=== PATIENT | female | born 1930 | race Caucasian/White ===

== ENCOUNTER 2018-02-09 20:35 | Emergency (ER) | payer OTHER, MEDICARE ==
[~2018-02-09] VITALS: Ht 160 cm; Wt 67.1 kg
[~2018-02-09 20:35] MED LIST: CLEOCIN HCL300 MG PO
[2018-02-09 20:43] VITALS: BP 129/52
--- NOTE | 2018-02-09 20:45 | ED UPPER/LOWER EXTREMITY COMPL ---
History of Present Illness General Chief Complaint: Lower Extremity Problems Stated Complaint: "LT HIP PAIN" Source: patient Exam Limitations: no limitations Vital Signs & Intake/Output Vital Signs & Intake/Output Vital Signs Date Time Temp Pulse Resp B/P B/P Pulse O2 O2 Flow FiO2 Mean Ox Delivery Rate 02/09 2043 97.6 78 18 129/52 94 Room Air Room Air ED Intake and Output 02/10 0000 02/09 1200 Intake Total Output Total Balance Patient 148 lb Weight Weight Reported by Patient Measurement Method Allergies Coded Allergies: erythromycin base (UNKNOWN 09/23/17) Reconcile Medications CLINDAMYCIN HCL (Cleocin HCl) 300 MG CAP 1 CAP PO TID . Triage Nurses Notes Reviewed? yes Onset: Gradual Duration: day(s): Timing: recent history Severity: mild Pain/Injury Location: Left: Hip. Method of Injury: unknown Modifying Factors: Improves With: movement. Worsens With: rest. Associated Symptoms: stiffness HPI: 87 yo woman in prior good health presents with left hip pain for the past 2 days, making it difficult to walk. She does not recall trauma or recent falls. The pain is better with movement and hurts when she is sitting. She is otherwise well. Past History Travel History Traveled to [place] past 21 day No Medical History Any Pertinent Medical History? 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 No Review of Systems Review of Systems Constitutional: Reports: no symptoms. EENTM: Reports: no symptoms. Respiratory: Reports: no symptoms. Cardiovascular: Reports: no symptoms. Gastrointestinal/Abdominal: Reports: no symptoms. Genitourinary: Reports: no symptoms. Musculoskeletal: Reports: no symptoms. Skin: Reports: no symptoms. Neurological/Psychological: Reports: no symptoms. Hematologic/Endocrine: Reports: no symptoms. Immunological: Reports: no symptoms. All Other Systems: Reviewed and Negative Physical Exam Physical Exam General Appearance: well developed/nourished, mild distress Head: atraumatic Ears, Nose, Throat: normal ENT inspection Neck: normal inspection Leg Left: mild tenderness in left hip musculature. no displacement. ROM limited by discomfort Progress Differential Diagnosis: arthritis vs other. Plan of Care: Orders Procedure Date/time Status XRY-AP PELVIS 02/09 2045 Active XRY-HIP 4 VIEWS UNI, LEFT 02/09 2045 Active Diagnostic Imaging: Viewed by Me: Radiology Read. Discussed w/RAD: Radiology Read. Radiology Impression: PATIENT: GOVIND MONTENEGRO PRESENT AGE: 87 PATIENT ACCOUNT NO: [id number] : 32 LOCATION: [facility] ORDERING PHYSICIAN: Bharath Weiner MD SERVICE DATE: 02/09/18-2044 EXAM TYPE: RAD - XRY-AP PELVIS; XRY-HIP 1 VIEW, LEFT EXAMINATION: XR PELVIS LEFT HIP RADIOGRAPHS CLINICAL INFORMATION: Pain. COMPARISON: Left hip radiographs dated 05/11/2010. TECHNIQUE: AP view of the pelvis. FINDINGS: The left hip prosthesis is unchanged in position. There is no evidence of hardware failure. No fracture. There is narrowing of the symphysis pubis. The osseous structures are demineralized. The right hip prosthesis appears similar in position when compared with 02/02/2018 CT examination. There are extensive degenerative changes of the sacroiliac joints and visualized lumbar spine. There is no displaced pelvic fracture. There are vascular calcifications. IMPRESSION: No displaced pelvic fracture. Osteopenia. Vascular calcifications. 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 The left hip prosthesis and visualized right hip prosthesis appear intact. DICTATED BY: Jesse Major MD DATE/TIME DICTATED:02/09/182120 GREEN LUMBER GRADER:NATTY DATE/ TIME TRANSCRIBED:02/09/182120 CONFIDENTIAL, DO NOT COPY WITHOUT APPROPRIATE AUTHORIZATION. <Electronically signed in Other Vendor System> SIGNED BY: Jesse Major MD 02/09/182130 Departure Departure Disposition: HOME OR SELF CARE Condition: Stable Clinical Impression Primary Impression: Hip pain Secondary Impressions: Arthritis Referrals: Wolfgang VAUGHN,Daniel Perez (PCP/Family) Departure Forms: Customer Survey General Discharge Information Comments benign xray... upon repeat questioning, pt states, "I feel fine... it was hurting yesterday, but it is better today." Encouraged close follow up.
--- NOTE | 2018-02-09 21:31 | RADIOLOGY REPORT ---
EXAMINATION: XR PELVIS LEFT HIP RADIOGRAPHS CLINICAL INFORMATION: Pain. COMPARISON: Left hip radiographs dated 05/11/2010. TECHNIQUE: AP view of the pelvis. FINDINGS: The left hip prosthesis is unchanged in position. There is no evidence of hardware failure. No fracture. There is narrowing of the symphysis pubis. The osseous structures are demineralized. The right hip prosthesis appears similar in position when compared with 02/02/2018 CT examination. There are extensive degenerative changes of the sacroiliac joints and visualized lumbar spine. There is no displaced pelvic fracture. There are vascular calcifications. IMPRESSION: No displaced pelvic fracture. Osteopenia. Vascular calcifications. 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 The left hip prosthesis and visualized right hip prosthesis appear intact.
[2018-02-11] MEDS ORDERED: CIPRO500 M1 PO (19:46)
[2018-02-14] MEDS ORDERED: MACROBID 100 M100 MG PO (17:56)
== END 2018-02-09 21:56 ==
LOC: ERH 20:35
DX: M16.12 Unilateral primary osteoarthritis, left hip (principal)
CPT/HCPCS: 72170; 73501

== ENCOUNTER 2018-02-17 17:06 | Inpatient (IN) | payer OTHER, MEDICARE ==
[~2018-02-17] VITALS: Ht 160 cm; Wt 64.0 kg
[~2018-02-17 17:06] MED LIST changes: +CIPRO500 M1 PO; +MACROBID 100 M100 MG PO
--- NOTE | 2018-02-17 18:06 | ED GENERAL ADULT ---
History of Present Illness General Chief Complaint: Lower Extremity Problems Stated Complaint: LEFT HIP PAIN, SWELLING TO LEFT LEG Source: patient, family Exam Limitations: dementia Vital Signs & Intake/Output Vital Signs & Intake/Output Vital Signs Date Time Temp Pulse Resp B/P B/P Pulse O2 O2 Flow FiO2 Mean Ox Delivery Rate 02/17 2245 97.4 62 16 134/66 99 Room Air 02/17 2135 57 18 136/64 99 Room Air 02/17 1939 97.5 61 18 131/60 98 02/17 1907 Room Air 02/17 1723 98.4 73 18 141/73 95 Room Air Allergies Coded Allergies: erythromycin base (UNKNOWN 09/23/17) Triage Note: RETURNS FOR CONTINUED COMPLAINTS OF LEG AND HIP PAIN. SEEN HERE 02/11 AND WEEK BEFORE AND SEEN BY CASE MANAGEMENT WHO SET UP HHS. HX DEMENTIA AND BLADDER CA. PT IS UNSURE OF WHY SHE IS HERE Triage Nurses Notes Reviewed? yes Onset: Gradual Duration: week(s): Timing: constant HPI: 87-year-old female with a history of dementia, hypothyroid, and bladder cancer ( not receiving any tx) presenting with left thigh pain times several weeks. Has been using tramadol without relief. Patient has been seen multiple times in the emergency Department for the same. 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 Was discharged home with outpatient follow-up. Today developed swelling and worsening pain to the left lower extremity. Denies numbness or paresthesias. (Elizabeth STEPHENS,Fátima) Reconcile Medications Levothyroxine Sodium 100 MCG TABLET 1 TAB PO DAILY THYROID HEALTH (Reported) Memantine HCl/Donepezil HCl (Namzaric 7 MG-10 MG Capsule) 7 MG-10 MG CAP.SPR.24 7-10 MG PO DAILY MEMORY (Reported) Nitrofurantoin Monohyd/M-Cryst (Macrobid 100 MG Capsule) 100 MG CAPSULE 1 CAP PO BID UTI with food Simvastatin (Simvastatin*) 40 MG TABLET 1 TAB PO DAILY HIGH CHOLESTROL ( Reported) Tramadol HCl 50 MG TABLET 1 TAB PO Q6P PRN PAIN SCALE 4-6 (MODERATE) ( Reported) (Husam VAUGHN,Bharath Fish) Past History Travel History Traveled to [place] past 21 day No Medical History Any Pertinent Medical History? 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 No (Fátima Puga) Review of Systems Review of Systems Constitutional: Reports: no symptoms. EENTM: Reports: no symptoms. Respiratory: Reports: no symptoms. Cardiovascular: Reports: edema. Denies: chest pain, orthopena, palpitations, syncope. GI: Reports: no symptoms. Genitourinary: Reports: no symptoms. Musculoskeletal: Reports: see HPI. Skin: Reports: no symptoms. Neurological/Psychological: Reports: no symptoms. Hematologic/Endocrine: Reports: no symptoms. Immunologic/Allergic: Reports: no symptoms. (Fátima Puga) Physical Exam Physical Exam General Appearance: well developed/nourished, no apparent distress, alert, awake , comfortable Head: atraumatic, normal appearance Eyes: Bilateral: normal appearance. Neck: normal inspection Respiratory: normal breath sounds, lungs clear Cardiovascular: regular rate/rhythm, normal peripheral pulses Gastrointestinal: soft, non-tender Back: normal inspection Extremities: Left lower extremity edema, no erythema, no increased warmth. No focal tenderness to palpation. Distal pulses 2+.unable to assess sensation and motor strength given patient's dementia and inability to properly follow commands. Neurologic/Psych: awake, alert, oriented x 3, normal mood/affect Skin: intact, normal color, warm/dry Core Measures ACS in differential dx? No CVA/TIA Diagnosis: No Sepsis Present: No Sepsis Focused Exam Completed? No (Fátima Puga) Progress Differential Diagnoses I considered the following diagnoses in my evaluation of the patient: [DVT versus metastatic pain versus MSK strain, low concern for fracture or dislocation] Plan of Care: Orders Procedure Date/time Status Nothing by Mouth 02/18 B Active CBC WITHOUT DIFFERENTIAL 02/18 06 Active BASIC ELECTROLYTES PLUS BUN&CR 02/18 06 Active PROTHROMBIN TIME 02/18 0245 Active Intake & Output 02/17 2248 Active Saline Lock 02/17 2151 Active Misc Message 02/17 2151 Active ED Holding Orders 02/17 2151 Active Vital Signs 02/17 2151 Active Code Status 02/17 2151 Active Admit to inpatient 02/17 2115 Active Patient Data 02/17 2005 Active EKG 02/18 1952 Active PARTIAL THROMBOPLASTIN TIME 02/18 1820 Complete PROTHROMBIN TIME 02/18 1820 Complete COMPREHENSIVE METABOLIC PANEL 02/18 1820 Complete CBC WITHOUT DIFFERENTIAL 02/18 1820 Complete Current Medications Sig/Coby Start time Last Medication Dose Stop Time Status Admin Heparin Sodium/ 25,000 UNIT Q24H 02/17 2015 AC 02/17 Dextrose 2044 (Heparin) Dextrose/Water 500 ML (D5W) Laboratory Tests 02/17/18 1850: Anion Gap 13, Estimated GFR > 60, BUN/Creatinine Ratio 25.0, Glucose 102 H, Calcium 9.9, Total Bilirubin 1.3, AST 17, ALT 11, Alkaline Phosphatase 105, Total Protein 7.0, Albumin 3.5, Globulin 3.5, Albumin/Globulin Ratio 1.0 L, PT 12.2, INR 1.12, APTT 29, CBC w Diff NO MAN DIFF REQ, RBC 3.99 L, MCV 83.7, MCH 27.0, MCHC 32.3 L, RDW 17.4 H, MPV 7.9, Gran % 82.8 H, Lymphocytes % 8.7 L, Monocytes % 7.4, Eosinophils % 0.4, Basophils % 0.7, Absolute Granulocytes 14.6 H, Absolute Lymphocytes 1.5, Absolute Monocytes 1.3 H, Absolute Eosinophils 0.1 , Absolute Basophils 0.1 Labs remarkable for isolated elevated white blood cell count to 17, otherwise labs unremarkable. Ultrasound positive for left femoral DVT. Started on heparin. Will admit for further anticoagulation. Patient has no chest pain, shortness of breath, or abnormal vital signs to indicate concern for PE. Initial ED EKG: NSR, rate (56), no ST T wave changes (Fátima Puga) Departure Departure Disposition: STILL A PATIENT Condition: Stable Clinical Impression Primary Impression: DVT (deep venous thrombosis) Referrals: Wolfgang VAUGHN,Daniel Perez (PCP/Family) Departure Forms: Customer Survey General Discharge Information (Fátima Puga) PA/PLUG ASSEMBLER Co-Sign Statement Statement: ED Attending supervision documentation- [x] I saw and evaluated the patient. I have also reviewed all the pertinent lab results and diagnostic results. I agree with the findings and the plan of care as documented in the PA's/PLUG ASSEMBLER's documentation. 02/17/18, 19:57.... pt with dvt, pain and swelling, difficulty ambulating... pt to be admitted for anticoagulation [] I have reviewed the ED Record and agree with the PA's/PLUG ASSEMBLER's documentation. [] Additions or exceptions (if any) to the PAs/PLUG ASSEMBLER's note and plan are summarized below: [] (Husam VAUGHN,Bharath Fish) Critical Care Note Critical Care Note Critical Care Time: non-applicable (Elizabeth STEPHENS,Fátima)
[2018-02-17 19:04] LABS: ABSOLUTE BASOPHIL COUNT 0.1 /CUMM (0.0-0.2); ABSOLUTE EOSINOPHIL COUNT 0.1 /CUMM (0.0-0.7); ABSOLUTE GRANULOCYTE CT 14.6 /CUMM (1.4-6.5); ABSOLUTE LYMPH COUNT 1.5 /CUMM (1.2-3.4); ABSOLUTE MONOCYTE COUNT 1.3 /CUMM (0.10-0.60); BASOPHIL % 0.7 % (0.0-2.0); EOSINOPHIL % 0.4 % (0-5); GRANULOCYTE % 82.8 % (42.2-75.2); HEMATOCRIT 33.4 % (37-47); MEAN CORPUSCULAR HGB CONC 32.3 G/DL (33.0-37.0); MEAN CORPUSCULAR VOLUME 83.7 FL (81.0-99.0); MEAN PLATELET VOLUME 7.9 FL (7.4-10.4); PLATELET COUNT 351 /CUMM (130-400); RBC DISTRIBUTION WIDTH 17.4 % (11.5-14.5); RED BLOOD CELL CT 3.99 /CUMM (4.20-5.40); WHITE BLOOD CELL COUNT 17.6 /CUMM (4.8-10.8)
[2018-02-17 19:14] LABS: PT 12.2 SEC (9.4-12.5); PTT 29 SEC (25-37)
--- NOTE | 2018-02-17 19:51 | ULTRASOUND REPORT ---
EXAMINATION: US TRIPLEX LOWER EXTREMITY, LEFT CLINICAL INFORMATION: Pain and edema COMPARISON: None TECHNIQUE: Color-flow triplex imaging with spectral analysis and compression Doppler were performed on the lower extremity. FINDINGS: There is positive deep venous thrombosis involving within the mid femoral vein partially occlusive. Clot also involves the saphenofemoral junction extending throughout the greater saphenous vein. 6 cm Pizarro's cyst. IMPRESSION: Positive DVT. Limited imaging. Wet reading called to Fátima Johnson at approximately 7:40 PM.
[2018-02-17] MEDS ORDERED: LEVOTHYROXINE100 MC1 PO (19:53)
[2018-02-17] MEDS ORDERED: NAMZARIC 7 MG-1 EACH PO (19:53)
[2018-02-17] MEDS ORDERED: SIMVASTATIN40 M1 PO (19:54)
[2018-02-17] MEDS ORDERED: TRAMADOL HCL50 M1 PO (19:55)
--- NOTE | 2018-02-17 20:11 | History & Physical ---
JacintoJaime 02/17/182009: General Information and HPI MD Statement: I have seen and personally examined GOVIND MONTENEGRO and documented this H&P. The patient is a 87 year old F who presented with a patient stated chief complaint of left leg swelling and pain this afternoon []. Source of Information: patient, family, old records Exam Limitations: dementia History of Present Illness: 87 YO F ex-smoker with PMH of dementia, HLD, bladder cancer s/p cystoscopy with transurethral resection, recent UTI and hypothyroidism brought to ED by her daughter with chief complaint of left leg swelling and pain since this afternoon. Patient is demented and she is not able to remember what happened to her. According to her daughter who was on the bedside she reported that her mother was doing okay walking around independently since this afternoon when he suddenly developed left leg swelling and pain. According to her daughter due to pain she was not able to walk around. Patient denied chest pain, palpitation, shortness of breath, nausea, vomiting, trauma to the leg, chills, fever, orthopnea, abdominal pain and dysuria. Patient is living with her daughters and they're taking care of her medications. According to her daughter patient had bladder tumor and January 2017 cystoscopy and transurethral resection of the tumor was done. After the discharge patient was again admitted with postop hematuria. Patient is seeing Dr. Whipple for her bladder tumor. She is seeing Dr. Boland who is her oncologist and she was scheduled to see him next week. Patient didn't get any chemoradiotherapy after tumor resection. According to her daughter she recently developed UTI and she is being treated with ciprofloxacin and later on changed to Macrobid. Patient reported having nausea and vomiting while taking MicroBid. Her daughter also reported that patient's sundowning effect due to her dementia. ED course: Vitals: Temperature 98.4, pulse 73, respiratory rate 18, blood pressure 141/73, oxygen saturation 95% on room air Labs: WBC count 17.6, hemoglobin 10.8, hematocrit 33.4, platelet count 351, sodium 136, potassium 4.4, BUN 20, creatinine 0.8, anion gap 13, BUNs/creatinine ratio 25.0, glucose 102, AST 17, ALT 11, calcium 9.9 Allergies/Medications Allergies: Coded Allergies: erythromycin base (UNKNOWN 09/23/17) Home Med list Levothyroxine Sodium 100 MCG TABLET 1 TAB PO DAILY THYROID HEALTH (Reported) Memantine HCl/Donepezil HCl (Namzaric 7 MG-10 MG Capsule) 7 MG-10 MG CAP.SPR.24 7-10 MG PO DAILY MEMORY (Reported) Nitrofurantoin Monohyd/M-Cryst (Macrobid 100 MG Capsule) 100 MG CAPSULE 1 CAP PO BID UTI with food Simvastatin (Simvastatin*) 40 MG TABLET 1 TAB PO DAILY HIGH CHOLESTROL ( Reported) Tramadol HCl 50 MG TABLET 1 TAB PO Q6P PRN PAIN SCALE 4-6 (MODERATE) ( Reported) Past History Travel History Traveled to [place] past 21 day No Medical History Neurological: dementia EENT: NONE Cardiovascular: hyperlipidemia Respiratory: NONE Gastrointestinal: NONE Hepatic: NONE Renal: BLADDER CANCER - PT IS NOT AWARE Musculoskeletal: NONE Psychiatric: NONE Endocrine: hypothyroidism Blood Disorders: NONE Cancer(s): NONE DRYWALLER/Reproductive: NONE History of MRSA: No History of VRE: No History of CDIFF: No Surgical History Surgical History: TURBT Past Family/Social History Psychosocial History Services at Home: None Review of Systems Review of Systems Constitutional: Denies: chills, fever, malaise. EENTM: Reports: no symptoms. Cardiovascular: Denies: chest pain, orthopena, palpitations. Respiratory: Denies: cough, orthopnea, short of breath, sputum production. GI: Denies: abdominal pain, constipation, diarrhea, distention, nausea. Genitourinary: Reports: no symptoms. Musculoskeletal: Reports: see HPI. Neurological/Psychological: Reports: no symptoms. Exam & Diagnostic Data Last 24 Hrs of Vital Signs/I&O Vital Signs Date Time Temp Pulse Resp B/P B/P Pulse O2 O2 Flow FiO2 Mean Ox Delivery Rate 02/17 1939 97.5 61 18 131/60 98 02/17 1907 Room Air 02/17 1723 98.4 73 18 141/73 95 Room Air Physical Exam General Appearance Alert, Cooperative Skin No Rashes Skin Temp/Moisture Exam: Warm/Dry Sepsis Skin Exam (color): Normal for Ethnicity HEENT Atraumatic, PERRLA, EOMI Neck Supple Cardiovascular Normal S1, Normal S2 Lungs Clear to Auscultation Abdomen Soft, No Tenderness Neurological Normal Speech, Strength at 5/5 X4 Ext, Normal Tone Extremities lEFT LEG SWELLING , B/L reticular veins Last 24 Hrs of Labs/Que: Laboratory Tests 02/17/18 1850: Anion Gap 13, Estimated GFR > 60, BUN/Creatinine Ratio 25.0, Glucose 102 H, Calcium 9.9, Total Bilirubin 1.3, AST 17, ALT 11, Alkaline Phosphatase 105, Total Protein 7.0, Albumin 3.5, Globulin 3.5, Albumin/Globulin Ratio 1.0 L, PT 12.2, INR 1.12, APTT 29, CBC w Diff NO MAN DIFF REQ, RBC 3.99 L, MCV 83.7, MCH 27.0, MCHC 32.3 L, RDW 17.4 H, MPV 7.9, Gran % 82.8 H, Lymphocytes % 8.7 L, Monocytes % 7.4, Eosinophils % 0.4, Basophils % 0.7, Absolute Granulocytes 14.6 H, Absolute Lymphocytes 1.5, Absolute Monocytes 1.3 H, Absolute Eosinophils 0.1 , Absolute Basophils 0.1 Assessment/Plan Assessment: 87 YO F ex-smoker with PMH of dementia, HLD, bladder cancer s/p cystoscopy with transurethral resection, recent UTI and hypothyroidism brought to ED by her daughter with chief complaint of left leg swelling and pain since this afternoon. We will admit the patient on general medicine floor to treat for following problems: Left leg DVT: -Proximal left leg DVT -Continue IV heparin -Watch for hematuria as she has bladder CA. -Hematology consultation in a.m. -Follow-up hematology recommendations for anticoagulation Recent UTI: -Urine cultures -Continue for Nitrofurantoin H/O Metastatic bladder cancer: -Oncology consultation in am -Call Dr. Flores in am -Watch for hematuria - Monitor cbc History of dementia: -Continue donepezil and memantine -Zyprexa if she becomes agitated. History of hypothyroidism: -Continue levothyroxine History of hyperlipidemia: -Continue Lipitor DVT prophylaxis: Mechanical and patient is already on IV heparin CODE STATUS: DNR/DNI As Ranked By This Provider Problem List: 1. Urinary tract infection 2. DVT (deep venous thrombosis) Core Measures/Misc (07/10) Acute Coronary Syndrome ACS Diagnosis: No Congestive Heart Failure Congestive Heart Failure Diagnosis No Cerebrovascular Accident CVA/TIA Diagnosis: No VTE (View Protocol) VTE Risk Factors Age>40 No Mechanical VTE Prophylaxis d/t N/A MechProphylax Ordered No VTE Pharm Prophylaxis d/t NA PharmProphylax ordered Sepsis (View protocol) Sepsis Present: No Vianey Arce 02/18/18 0043: Attending MD Review Statement Attending Statement Attending MD Statement: examined this patient, discuss w/resident/PA/LABORER SHIPYARD, agreed w/resident/PA/LABORER SHIPYARD, discussed with family, reviewed EMR data (avail), reviewed images, amended to note Attending Assessment/Plan: CC: Left leg pain and swelling PMH: Hypothyroidism, dementia, HLD, bladder cancer History is obtained from patient's granddaughters. Patient is complaining of on and off left leg pain and left hip pain, on and off confusion. Today her leg was more swollen than usual so they decided to bring her in ER. Family did not notice any fever, chills, patient did not complain of chest pain, chest tightness, shortness of breath, palpitations, dizziness, passing out, falls. Patient denies any black colored or red colored stool, currently no blood in urine but she had episode of hematuria approximately in October secondary to her bladder cancer. Patient generally ambulates with cane. Patient was seen in ER on February 09 and February 11 for left hip pain and left leg pain. Several imagings were obtained during that visit and they were informed that her bladder cancer may be spreading to pelvis. She was also started on ciprofloxacin on February 11 which was changed to Macrobid on February 14 after culture sensitivity. Vitals: Temperature 98.4, pulse is 73, RR 18, blood pressure 141/73, saturating 95% on room air. On exam: A O 2, cooperative, no acute distress, neck supple, JVD normal, no lymphadenopathy, mucosa moist, no focal neurological deficit, no dependent edema , left lower extremity is enlarged as compared to right lower extremity, no redness warmth or tenderness on palpation no obvious skin rashes or inflammation CVS: S1-S2, RRR. RS: Clear to auscultate bilaterally. Abdomen: Soft, NT, ND, bowel sounds present. DVT Doppler left lower extremity: There is positive deep venous thrombosis involving within the mid femoral vein partially occlusive. Clot also involves the saphenofemoral junction extending throughout the greater saphenous vein. [address] pelvis without IV contrast: Enlarging left pelvic sidewall mass with left pelvic sidewall adenopathy. Although this mass is nonspecific and of intermediate to low signal intensity suggesting the presence of fluid, this remains highly concerning for metastatic disease given interval enlargement from the prior examination and history of bladder malignancy. Assessment and plan 87-year-old female with above-mentioned past medical history was brought in ER for left leg pain and swelling. The pain is chronic since last few months, on and off but patient's family noticed a swelling today so they brought her in ER. Patient was seen in ER twice before for similar pain but patient did not have swelling at that time and is under treatment for UTI. She is also investigated with multiple imagings especially CT scan of pelvis which shows possible extension of bladder tumor and pelvic wall with lymphadenopathy. Family is expecting oncology appointment next week for chemotherapy. Patient is found to have left femoral vein DVT. Given her bladder cancer, and associated risk of bleeding, we will start with heparin which is easily reversible, closely watch for hematuria and then transitioned to oral anticoagulation. We'll also get oncology and urology involved. We'll continue treatment for her UTI. + Left femoral vein DVT + Bladder cancer with suspicion of metastasis + History of hypothyroidism, dementia, HLD - Admit to general medicine - Continue heparin drip - Close monitor for hematuria- - Continue nitrofurantoin for UTI- - Inform oncology about patient being in hospital - Consult urology : Safety of anticoagulation in view of bladder cancer - Watch for delirium and agitation - Continue her home medications Toña Boyd 02/18/18 0228: Resident Review Statement Resident Statement: examined this patient, discussed with internal controls manager, reviewed images, amended to note Other Findings: 87-year-old lady with past medical history of dementia, hyperlipidemia, hypothyroidism, multiple UTIs, history of bladder cancer status post 2 times tumor resection came to the hospital with chief complaint of leg pain and leg swelling. Information was obtained from patient's family history patient does not have a good memory. According to the family patient was complaining of on and off left leg pain for couple of days however yesterday they noticed that she had leg swelling on the left side now so reported of pain therefore came to the hospital. Patient denies any chills, fever, chest pain, shortness of breath on exertions, wheezing , headache. However according to the family she had 1 or 2 episodes of nausea and vomiting due to taking Macrobid for 2 days. Patient had cystoscopy and transurethral resection in January 23, 2017 and also she had an episode of hematuria earlier in the year. There are possible metastasis in the abdomen as well, which patient will see for them in the upcoming week. According to the family patient has episode of sundowning during the night and she does not sleep during the night and sleeping mostly in the morning.Patient has a cane which she uses occasionally for walking. Vital signs in ED were stable Patient is alert and oriented 2 Chest clear bilaterally Heart S1-S2 normal Abdomen nontender Increased swelling of the left leg comparing to the right leg Labs are notable for WBC 17.6, hemoglobin 10.8, sodium 136, BUN 20, EKG showed sinus bradycardia 56, no acute ST-T elevation, QTc 417 Doppler of the left leg There is positive deep venous thrombosis involving within the mid femoral vein partially occlusive. Clot also involves the saphenofemoral junction extending throughout the greater saphenous vein. 6 cm Pizarro's cyst. Assessment DVT of the left leg History of bladder cancer History of UTI History of dementia History of hypothyroidism History of hyperlipidemia Plan Admit to [facility] Start IV heparin and watch for hematuria Urology consult for the morning Oncology consult for the morning Continue oral Macrobid 100 twice daily P.o. Zyprexa 5 mg as needed for agitation Continue levothyroxine 100 MCG daily Continue a statin DNR/DNI, regular diet, Tylenol for pain, DVT prophylaxis for now is IV heparin
[2018-02-17 23:09] VITALS: BP 120/48
--- NOTE | 2018-02-18 00:45 | Admission Certification ---
Admission Certification Certification Statement - As attending physician, I certify that at the time of - admission, based on clinical presentation, severity of - symptoms, need for further diagnostic testing and - therapeutic interventions, and risk of adverse outcomes - without in-hospital treatment, in my clinical assessment, - this patient requires an acute hospital stay for a minimum - of two nights or longer. I have also considered psychsocial - factors such as support system, advanced age, financial - issues, cognitive issues, and failed out-patient treatments, - past re-admission history, safety of patient, and lack of - compliance as applicable. Specific rationale supporting this admission is: Left femoral vein DVT
[2018-02-18 03:38] LABS: PT 13.4 SEC (9.4-12.5)
[2018-02-18 05:00] LABS: PTT 74 SEC (25-37)
--- NOTE | 2018-02-18 06:13 | PN- Housestaff ---
See Addendum Subjective Follow-up For: Left leg DVT UTI Subjective: No overnight events. Patient remained afebrile but appears seen and examined this morning. She denied any chest pain, short of breath, nausea, vomiting, chills, palpitation and dysuria. Patient denied any pain in the left leg. Review of Systems Constitutional: Denies: chills, fever, weakness. EENTM: Reports: no symptoms. Cardiovascular: Denies: chest pain, palpitations. Respiratory: Denies: cough, short of breath, sputum production. Gastrointestinal: Denies: abdominal pain, constipation, diarrhea, nausea. Genitourinary: Reports: no symptoms. Neurological/Psychological: Reports: no symptoms. Objective Last 24 Hrs of Vital Signs/I&O Vital Signs Date Time Temp Pulse Resp B/P B/P Pulse O2 O2 Flow FiO2 Mean Ox Delivery Rate 02/18 0648 97.7 60 17 116/54 98 02/17 2309 98.0 55 18 120/48 97 Room Air 02/17 2245 97.4 62 16 134/66 99 Room Air 02/17 2135 57 18 136/64 99 Room Air 02/17 1939 97.5 61 18 131/60 98 02/17 1907 Room Air 02/17 1723 98.4 73 18 141/73 95 Room Air Intake & Output 02/18 0800 02/18 0000 02/17 1600 Intake Total 0 Output Total Balance 0 Intake, Oral 0 Patient 140 lb 138 lb Weight Weight Bed scale Measurement Method Physical Exam General Appearance: Alert, Cooperative Skin: No Rashes Skin Temp/Moisture Exam: Warm/Dry Sepsis Skin Exam (color): Normal for Ethnicity HEENT: Atraumatic, EOMI Neck: Supple Cardiovascular: Normal S1, Normal S2 Lungs: Clear to Auscultation Abdomen: Soft, No Tenderness Neurological: Normal Speech, Strength at 5/5 X4 Ext, Normal Tone Extremities: Left leg swelling. Assessment/Plan Assessment: 87 YO F ex-smoker with PMH of dementia, HLD, bladder cancer s/p cystoscopy with transurethral resection, recent UTI and hypothyroidism brought to ED by her daughter with chief complaint of left leg swelling and pain since this afternoon. We are following the patient for following problems: Left leg DVT: -Proximal left leg DVT -Continue IV heparin -Watch for hematuria as she has bladder CA. -Follow-up hematolog/oncology recommendations for anticoagulation. Recent UTI: -Urine culture positive with staph coagulase-negative. Sensitive to nitrofurantoin. -Continue for Nitrofurantoin H/O Metastatic bladder cancer: -Follow up oncology recommendations -Follow-up hematology recommendations -Watch for hematuria - Monitor cbc History of dementia: -Continue donepezil and memantine -Zyprexa if she becomes agitated. History of hypothyroidism: -Continue levothyroxine History of hyperlipidemia: -Continue Lipitor DVT prophylaxis: Mechanical and patient is already on IV heparin CODE STATUS: DNR/DNI Problem List: 1. DVT (deep venous thrombosis) 2. Urinary tract infection Pain Ratin Pain Location: NONE Pain Goal: Remain pain free Pain Plan: PAIN PATHWAY Tomorrow's Labs & Rationales: CBC/BEP
[2018-02-18 06:48] VITALS: BP 116/54
--- NOTE | 2018-02-18 07:54 | PN- Urology ---
Surgical Brief Attending Note Brief Attending Note: I am aware of patient's admission and finding of L lower extremity DVT. He daughter called me late yesterday afternoon stating that her mother's L leg was swollen and painful and I advised ER visit for w/u for DVT. The patient underwent TURBT of a large tumor on the L side of the bladder on 09/26/2017. 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 At that time tx options were discussed with her daughter who felt that the patient would not be a good candidate for chemotherapy which I felt was reasonable. Conservative management was decided upon. She has had no gross hematuria. At this time no urologic contraindication
--- NOTE | 2018-02-18 07:59 | PN- Urology ---
Surgical Brief Attending Note Brief Attending Note: Addendum to urology note. At this time there is no urologic contraindication to anticoagulation. If she developes gross hematuria anticoagulation would need to be reconsidered. Agree with oncology consult although I doubt she is a candidate for chemotherapy
[2018-02-18 10:43] LABS: ABSOLUTE BASOPHIL COUNT 0.1 /CUMM (0.0-0.2); ABSOLUTE EOSINOPHIL COUNT 0.2 /CUMM (0.0-0.7); ABSOLUTE GRANULOCYTE CT 11.2 /CUMM (1.4-6.5); ABSOLUTE LYMPH COUNT 1.3 /CUMM (1.2-3.4); ABSOLUTE MONOCYTE COUNT 1.2 /CUMM (0.10-0.60); BASOPHIL % 0.7 % (0.0-2.0); EOSINOPHIL % 1.2 % (0-5); GRANULOCYTE % 80.2 % (42.2-75.2); HEMATOCRIT 29.7 % (37-47); MEAN CORPUSCULAR HGB 27.5 PG (27.0-31.0); MEAN CORPUSCULAR HGB CONC 33.1 G/DL (33.0-37.0); MEAN CORPUSCULAR VOLUME 83.1 FL (81.0-99.0); MEAN PLATELET VOLUME 9.5 FL (7.4-10.4); PLATELET COUNT 295 /CUMM (130-400); RBC DISTRIBUTION WIDTH 17.6 % (11.5-14.5); RED BLOOD CELL CT 3.58 /CUMM (4.20-5.40)
[2018-02-18 14:42] VITALS: BP 118/60
[2018-02-18 15:39] LABS: PTT 56 SEC (25-37)
[2018-02-18 22:34] VITALS: BP 146/80
[2018-02-18 23:49] LABS: PTT 67 SEC (25-37)
[2018-02-19 06:40] VITALS: BP 136/74
[2018-02-19 08:36] LABS: PT 13.9 SEC (9.4-12.5)
[2018-02-19 08:45] LABS: ABSOLUTE BASOPHIL COUNT 0.2 /CUMM (0.0-0.2); ABSOLUTE EOSINOPHIL COUNT 0.2 /CUMM (0.0-0.7); ABSOLUTE GRANULOCYTE CT 8.4 /CUMM (1.4-6.5); ABSOLUTE LYMPH COUNT 1.8 /CUMM (1.2-3.4); ABSOLUTE MONOCYTE COUNT 1.1 /CUMM (0.10-0.60); BASOPHIL % 1.9 % (0.0-2.0); EOSINOPHIL % 2.1 % (0-5); GRANULOCYTE % 71.3 % (42.2-75.2); HEMATOCRIT 27.5 % (37-47); MEAN CORPUSCULAR HGB 27.3 PG (27.0-31.0); MEAN CORPUSCULAR HGB CONC 32.9 G/DL (33.0-37.0); MEAN CORPUSCULAR VOLUME 83.1 FL (81.0-99.0); PLATELET COUNT 279 /CUMM (130-400); RBC DISTRIBUTION WIDTH 17.5 % (11.5-14.5); RED BLOOD CELL CT 3.31 /CUMM (4.20-5.40); WHITE BLOOD CELL COUNT 11.9 /CUMM (4.8-10.8)
--- NOTE | 2018-02-19 09:22 | PN- Housestaff ---
Paulo Marie MD,Ami 02/19/18 0922: Subjective Follow-up For: Left leg DVT UTI Subjective: Patient visited today, was lying in bed comfortably in no acute distress, was alert. Patient could not remember date, even year. Sitter at bedside due to fall risk No fever or chills, no shortness of breathing, no chest pain, no signs suggestive of bleeding or pulmonary embolic, no other events. had mild left leg pain. not at time of interview Review of Systems Constitutional: Reports: see HPI. Objective Last 24 Hrs of Vital Signs/I&O Vital Signs Date Time Temp Pulse Resp B/P B/P Pulse O2 O2 Flow FiO2 Mean Ox Delivery Rate 02/19 0640 98.0 73 18 136/74 98 02/18 2234 98.2 71 18 146/80 98 Room Air 02/18 1442 98.2 62 18 118/60 94 Room Air Intake & Output 02/19 1600 02/19 0800 02/19 0000 Intake Total 214.4 80.4 Output Total Balance 214.4 80.4 Intake, IV 214.4 80.4 Physical Exam General Appearance: Alert, Cooperative, No Acute Distress Skin Temp/Moisture Exam: Warm/Dry Sepsis Skin Exam (color): Normal for Ethnicity HEENT: Atraumatic, EOMI Cardiovascular: Normal S1, Normal S2 Lungs: Normal Air Movement Abdomen: No Tenderness Extremities: left leg swelling Current Medications: Current Medications Sig/Coby Start time Last Medication Dose Route Stop Time Status Admin Acetaminophen 650 MG .STK-MED ONE 02/19 0015 DC PO 02/19 0016 Acetaminophen 650 MG Q6P PRN 02/17 2315 02/19 PO 0017 Atorvastatin Calcium 20 MG 1700 02/18 1700 AC 02/18 PO 1649 Cyclobenzaprine HCl 5 MG ONCE ONE 02/19 0100 DC PO 02/19 0101 Heparin Sodium 2,561 UNIT ONE ONE 02/18 1630 DC 02/18 (Porcine) IV 02/18 1631 1530 Heparin Sodium/ 25,000 UNIT Q24H 02/17 2015 AC 02/17 Dextrose IV 204 Dextrose/Water 500 ML Levothyroxine Sodium 0.1 MG DAILY AC 02/18 0700 AC 02/19 PO 0633 Memantine 5 MG DAILY 02/18 0900 AC 02/19 PO 0756 Nitrofurantoin 100 MG BID 02/18 0200 DC 02/18 PO 0643 Olanzapine 5 MG .STK-MED ONE 02/19 0126 DC PO 02/19 0127 Olanzapine 5 MG DAILY PRN 02/18 0230 AC 02/19 PO 0156 Warfarin Sodium 5 MG COUMADIN 1700 ONE 02/18 1700 DC 02/18 PO 02/18 1701 1649 Last 24 Hrs of Lab/Que Results Last 24 Hrs of Labs/Mics: Laboratory Tests 02/19/18 1155: APTT 109 *H 02/19/18 0720: PT 13.9 H, INR 1.27 H, CBC w Diff NO MAN DIFF REQ, RBC 3.31 L, MCV 83.1, MCH 27.3, MCHC 32.9 L, RDW 17.5 H, MPV 9.0, Gran % 71.3, Lymphocytes % 15.5 L, Monocytes % 9.2, Eosinophils % 2.1, Basophils % 1.9, Absolute Granulocytes 8.4 H, Absolute Lymphocytes 1.8, Absolute Monocytes 1.1 H, Absolute Eosinophils 0.2 , Absolute Basophils 0.2 02/18/18 2308: APTT 67 H 02/18/18 1514: APTT 56 H Assessment/Plan Assessment: 87 YO F ex-smoker with PMH of dementia, HLD, bladder cancer s/p cystoscopy with transurethral resection, recent UTI and hypothyroidism brought to ED by her daughter with chief complaint of left leg swelling and pain since this afternoon. We are following the patient for following problems: Left leg DVT: -Proximal left leg DVT -Continue IV heparin -Watch for hematuria as she has bladder CA. -Follow-up hematolog/oncology recommendations for anticoagulation. - Hb decreased, no sign of bleeding - monitor INR and CBC - consider to bridg to lovenox if Hb stable Recent UTI: -Urine culture positive with staph coagulase-negative. Sensitive to nitrofurantoin. -Discontinued Nitrofurantoin H/O Metastatic bladder cancer: -Follow up oncology recommendations -Follow-up hematology recommendations -Watch for hematuria - Monitor cbc History of dementia: -Continue donepezil and memantine -Zyprexa if she becomes agitated. History of hypothyroidism: -Continue levothyroxine History of hyperlipidemia: -Continue Lipitor DVT prophylaxis: Mechanical and patient is already on IV heparin CODE STATUS: DNR/DNI Problem List: 1. DVT (deep vein thrombosis) in 2. Bladder mass 3. Urinary tract infection Pain Ratin Pain Location: None at time of interview Pain Goal: Pain 4 or less Pain Plan: NA Tomorrow's Labs & Rationales: CBC BEP INR Shabnam Giles MDanithavidhya 02/19/18 1016: Attending Review Statement Attending Statement Attending Statement: examined this patient, discuss w/resident/PA/BUS TROLLEY AND TAXI INSTRUCTOR, agreed w/resident/PA/BUS TROLLEY AND TAXI INSTRUCTOR, reviewed EMR data (avail), discussed with nursing, amended to note Attending Assessment/Plan: Patient seen and examined. Resting comfortably not in any acute distress. No issues overnight. This morning she denies shortness of breath or chest pain. Denies palpitations. She denies lower extremity pain at present. On examination she is not in any respiratory distress. She continues to have left lower extremity swelling. No tenderness. No cyanosis. Laboratory data shows a drop in her hemoglobin to 9.0 from 10.8 on admission. Leukocytosis has dropped from 17.6 on admission to 11.0 today. Recommendations: -In view of the drop in hemoglobin level recommend continue to monitor patient in the hospital on heparin infusion. Continue oral Coumadin for now. INR goal is 2-3. -Check stool guaiac to rule out GI bleeding. -Hemoglobin level stabilizes we may transition patient to Lovenox bridging. -If hemoglobin level continues to fall and stool guaiac is negative we will follow-up with the urology service. -Plan of care discussed with the daughter in detail. She verbalized understanding.
[2018-02-19 12:54] LABS: PTT 109 SEC (25-37)
[2018-02-19 14:14] VITALS: BP 128/62
[2018-02-19 19:40] LABS: PTT 44 SEC (25-37)
[2018-02-19 21:36] VITALS: BP 108/54
[2018-02-20 04:19] LABS: PTT 120 SEC (25-37)
[2018-02-20 06:23] VITALS: BP 120/60
--- NOTE | 2018-02-20 07:34 | PN- Housestaff ---
[facility] 02[facility] 0734: Subjective Follow-up For: Left leg DVT UTI Subjective: No overnight events. Patient remained afebrile overnight. Seen and examined this morning. patient having dementia. Patient having one-on-one sitter for agitation. She denied any chest pain, short of breath, nausea, vomiting, chills , fever and abdominal pain. Her left leg swelling has improved. I spoke to Dr. Ahumada and he recommended to start oral anticoagulation. He will follow the patient as outpatient and speak to family about goals of care and any further treatment for bladder cancer in family wishes. Review of Systems Constitutional: Denies: chills, fever. EENTM: Reports: no symptoms. Cardiovascular: Denies: chest pain, palpitations. Respiratory: Denies: cough, short of breath, sputum production. Gastrointestinal: Denies: abdominal pain, constipation, diarrhea, melena, nausea. Genitourinary: Reports: no symptoms. Neurological/Psychological: Reports: see HPI. Objective Last 24 Hrs of Vital Signs/I&O Vital Signs Date Time Temp Pulse Resp B/P B/P Pulse O2 O2 Flow FiO2 Mean Ox Delivery Rate 02/20 0623 98.0 92 20 120/60 97 02/19 2136 98.9 82 18 108/54 97 02/19 1414 98.4 65 18 128/62 98 Room Air Intake & Output 02/20 1600 02/20 0800 02/20 0000 Intake Total 251.9 165.1 Output Total Balance 251.9 165.1 Intake, IV 151.9 65.1 Intake, Oral 100 100 Number 0 Bowel Movements Physical Exam General Appearance: Alert, Cooperative Skin: No Rashes Skin Temp/Moisture Exam: Warm/Dry Sepsis Skin Exam (color): Normal for Ethnicity HEENT: Atraumatic, PERRLA, EOMI Neck: Supple Cardiovascular: Normal S1, Normal S2 Lungs: Clear to Auscultation Abdomen: Soft, No Tenderness Neurological: Normal Speech, Strength at 5/5 X4 Ext, Normal Tone Extremities: Left leg swelling has improived Assessment/Plan Assessment: 87 YO F ex-smoker with PMH of dementia, HLD, bladder cancer s/p cystoscopy with transurethral resection, recent UTI and hypothyroidism brought to ED by her daughter with chief complaint of left leg swelling and pain since this afternoon. We are following the patient for following problems: Left leg DVT: -Proximal left leg DVT -Coumadin 5mg every day to keep INR 2-3 and bridge it with lovenox 100mg s/c every day until INR is between 2-3 -Watch for hematuria as she has bladder CA. -Urology agreed to start the patient on oral anticoagulation - monitor INR 1.64 today. H &H is stable 08/22.3 Recent UTI: -Urine culture positive with staph coagulase-negative. Sensitive to nitrofurantoin. -Discontinued Nitrofurantoin as patient is asymptomatic. H/O Metastatic bladder cancer: -We will follow the patient as outpatient and discuss goals of care and further treatment plan according to family wishes as outpatient. -Follow-up urology recommendations -No hematuria reported so far. History of dementia: -Continue donepezil and memantine -Zyprexa if she becomes agitated. History of hypothyroidism: -Continue levothyroxine History of hyperlipidemia: -Continue Lipitor DVT prophylaxis: Mechanical and on lovenox and coumadin CODE STATUS: DNR/DNI Problem List: 1. DVT (deep venous thrombosis) 2. Urinary tract infection Pain Ratin Pain Location: none Pain Goal: Remain pain free Pain Plan: pain pathway Tomorrow's Labs & Rationales: cbc/bep Wendy Giles MD 02/20/18 1257: Attending MD Review Statement Attending Statement Attending MD Statement: examined this patient, discuss w/resident/PA/FIELD ADMINISTRATIVE ASSISTANT, agreed w/resident/PA/FIELD ADMINISTRATIVE ASSISTANT, reviewed EMR data (avail), discussed with nursing, discussed with case mgmt, amended to note Attending Assessment/Plan: Patient seen and examined. Resting comfortably not in any acute distress. No issues overnight reported by nursing staff. She is alert and oriented 3. She is ambulating freely. She denies any lower extremity pain today. On examination there is no increase in swelling of her left lower extremity. Hemoglobin level is stable with no reports of gross hematuria. In anticipation of possibility of significant blood loss from anemia we will anticoagulate patient with Coumadin in order to provide easy reversal should the need arise. INR is currently subtherapeutic. She will be discharged on Lovenox bridging until the INR is therapeutic after which she will continue on Coumadin alone. She will follow-up with the urology service and the oncology service as an outpatient. She is medically stable to be discharged home today.
--- NOTE | 2018-02-20 07:55 | PN- Urology ---
Subjective Subjective: Lying in bed comfortably. No distress. Denies pain at this time Objective Vital Signs and I&Os Vital Signs Date Time Temp Pulse Resp B/P B/P Pulse O2 O2 Flow FiO2 Mean Ox Delivery Rate 02/20 06 98.0 92 20 120/60 97 02/19 2136 98.9 82 18 108/54 97 02/19 1414 98.4 65 18 128/62 98 Room Air Intake & Output 02/20 0802/20 0000 02/19 1600 02/19 0802/19 0000 02/18 1600 Intake Total 251.9 165.1 802.5 214.4 80.4 789.4 Output Total 350 350 Balance 251.9 165.1 452.5 214.4 80.4 439.4 Intake, IV 151.9 65.1 182.5 214.4 80.4 169.4 Intake, Oral 100 100 620 620 Number 0 0 1 Bowel Movements Output, Urine 350 350 Back: No CVA tenderness Abd: soft and non tender Extrems: some swelling of L leg. No calf tenderness. Some mild L thigh tenderness medially Hct has drifted down some while on heparin drip Pt denies gross hematuria Urine C&S positive for coag neg staph Assessment/Plan Assessment/Plan Imp: 1. metastatic bladder ca 2. L lower extremity DVT, could be contributed to by compression of veins by L pelvic adenopathy 3. Coag neg staph UTI Plan: 1. Agree with anticoagulation plans as noted 2. Check Hct this AM 3. Would not treat her UTI since she is asymptomatic 4. Patient has her initial oncology appt this week as outpatient. If she remains in hospital and is unable to keep this appt then would have oncology see her as inpatient. I doubt she will be a candidate for systemic chemotherapy
--- NOTE | 2018-02-20 08:05 | Cons- Oncology ---
General Information and HPI Consulting Request Date of Consult: 02/20/18 Requested By: Vianey Arce MD Reason for Consult: Bladder cancer, DVT Source of Information: old records Exam Limitations: dementia History of Present Illness: Ms. Drake is an 87-year-old female with history of tobacco abuse, dementia, HLD, hypothyroidism, and muscle invasive bladder cancer status post cystoscopy and TUBT (09/26/2017) who presented to the hospital by her daughter for left leg swelling and pain since the afternoon of day of admission. Patient has dementia and is unable to give an accurate history. History obtained mainly through chart review. Patient currently denies any pain or breathing difficulties. According to chart review, the patient was able to walk around independent on day of admission. She developed sudden left leg swellign and pain in the calf. She had no other symptoms. She has no breathing difficulty. She denies any nausea, vomiting, diarrhea, abdominal pain, chest pain, fever, or chills. She is currently being treated for UTI with Macrobid. On presentation to the ER, US of the left lower extremity demonstrated DVT in the the mid femoral vein which was partially occlusive. Clot also involves the saphenofemoral junction extending throughout the greater saphenous vein. She was noted to also have elevated WBC at 17.6. Hemoglobin was 10.8 with hematocrit of 33.4%. Renal function was normal. She was started on heparin drip. She denies any pain at the moment. Allergies/Medications Allergies: Coded Allergies: erythromycin base (UNKNOWN 09/23/17) Home Med List: Levothyroxine Sodium 100 MCG TABLET 1 TAB PO DAILY THYROID HEALTH (Reported) Memantine HCl/Donepezil HCl (Namzaric 7 MG-10 MG Capsule) 7 MG-10 MG CAP.SPR.24 7-10 MG PO DAILY MEMORY (Reported) Nitrofurantoin Monohyd/M-Cryst (Macrobid 100 MG Capsule) 100 MG CAPSULE 1 CAP PO BID UTI with food Simvastatin (Simvastatin*) 40 MG TABLET 1 TAB PO DAILY HIGH CHOLESTROL ( Reported) Tramadol HCl 50 MG TABLET 1 TAB PO Q6P PRN PAIN SCALE 4-6 (MODERATE) ( Reported) Current Medications: Current Medications Sig/Coby Start time Last Medication Dose Route Stop Time Status Admin Acetaminophen 650 MG .STK-MED ONE 02/19 1934 DC PO 02/19 1935 Acetaminophen 650 MG Q6P PRN 02/17 2315 AC 02/19 PO 1934 Atorvastatin Calcium 20 MG 1700 02/18 1700 AC 02/19 PO 1733 Cyclobenzaprine HCl 5 MG ONCE ONE 02/19 2230 DC 02/19 PO 02/19 223 2329 Heparin Sodium 4,800 UNIT BOLUS ONE 02/19 2150 DC 02/19 (Porcine) IV 02/19 215 2221 Heparin Sodium/ 25,000 UNIT Q24H 02/17 2015 AC 02/20 Dextrose IV 05 Dextrose/Water 500 ML Levothyroxine Sodium 0.1 MG DAILY AC 02/18 0700 AC 02/20 PO 0540 Memantine 5 MG DAILY 02/18 0900 AC 02/19 PO 0756 Olanzapine 5 MG DAILY PRN 02/18 0230 AC 02/19 PO 0156 Warfarin Sodium 5 MG COUMADIN 1700 ONE 02/19 1700 DC 02/19 PO 02/19 1701 1733 Review of Systems Review of Systems: Limited due to mental status/dementia Review of Systems Constitutional: Denies: chills, fever. Cardiovascular: Denies: chest pain. Respiratory: Denies: short of breath. GI: Denies: abdominal pain. Genitourinary: Denies: dysuria. Musculoskeletal: Denies: back pain. All Other Systems: Reviewed and Negative Past History Travel History Traveled to [place] past 21 day No Medical History Blood Transfusion Hx: No Neurological: dementia EENT: NONE Cardiovascular: hyperlipidemia Respiratory: NONE Gastrointestinal: NONE Hepatic: NONE Renal: BLADDER CANCER - PT IS NOT AWARE Musculoskeletal: L HIP PAIN X 1 MONTH Psychiatric: NONE Endocrine: hypothyroidism Blood Disorders: NONE Cancer(s): bladder cancer AD OPERATIONS ASSOCIATE/Reproductive: NONE Surgical History Surgical History: TURBT BOTH HIPS REPLACED APPENDECTOMY CHOLECYSTECTOMY Psychosocial History Where Do You Live? Home Services at Home: None Smoking Status: Former Smoker Exam & Diagnostic Data Vital Signs and I&O Vital Signs Date Time Temp Pulse Resp B/P B/P Pulse O2 O2 Flow FiO2 Mean Ox Delivery Rate 02/20 623 98.0 92 20 120/60 97 02/196 98.9 82 18 108/54 97 02/19 1414 98.4 65 18 128/62 98 Room Air Intake & Output 02/20 0800 02/20 0000 02/19 1600 Intake Total 251.9 165.1 802.5 Output Total 350 Balance 251.9 165.1 452.5 Intake, IV 151.9 65.1 182.5 Intake, Oral 100 100 620 Number 0 0 Bowel Movements Output, Urine 350 Physical Exam General Appearance: no apparent distress, alert, awake, comfortable Head: atraumatic, normal appearance Eyes: Bilateral: PERRL, EOMI. Ears, Nose, Throat: normal pharynx Respiratory: normal breath sounds, chest non-tender, no respiratory distress, quiet respiration Cardiovascular: regular rate/rhythm Gastrointestinal: normal bowel sounds, soft, non-tender, no organomegaly Extremities: pedal edema (L) Neurologic/Psych: awake, alert, oriented to self Cranial Nerves: normal hearing, normal speech Skin: intact, normal color, warm/dry Lymphatic: no anterior cervical clara Last 48 Hours of Lab Results: Laboratory Tests 02/20 02/20 02/19 02/19 0616 0330 1911 1155 Chemistry Sodium Pending Potassium Pending Chloride Pending Carbon Dioxide Pending Anion Gap Pending BUN Pending Creatinine Pending BUN/Creatinine Ratio Pending Coagulation PT Pending INR Pending APTT (25 - 37 SEC) 120 *H 44 H 109 *H Hematology CBC w Diff Pending WBC Pending RBC Pending Hgb Pending Hct Pending MCV Pending MCH Pending MCHC Pending RDW Pending Plt Count Pending MPV Pending 02/19 02/18 02/18 0720 2308 1514 Coagulation PT (9.4 - 12.5 SEC) 13.9 H INR (0.90 - 1.19) 1.27 H APTT (25 - 37 SEC) 67 H 56 H Hematology CBC w Diff NO MAN DIFF REQ WBC (4.8 - 10.8 /CUMM) 11.9 H RBC (4.20 - 5.40 /CUMM) 3.31 L Hgb (12.0 - 16.0 G/DL) 9.0 L Hct (37 - 47 %) 27.5 L MCV (81.0 - 99.0 FL) 83.1 MCH (27.0 - 31.0 PG) 27.3 MCHC (33.0 - 37.0 G/DL) 32.9 L RDW (11.5 - 14.5 %) 17.5 H Plt Count (130 - 400 /CUMM) 279 MPV (7.4 - 10.4 FL) 9.0 Gran % (42.2 - 75.2 %) 71.3 Lymphocytes % (20.5 - 51.1 %) 15.5 L Monocytes % (1.7 - 9.3 %) 9.2 Eosinophils % (0 - 5 %) 2.1 Basophils % (0.0 - 2.0 %) 1.9 Absolute Granulocytes (1.4 - 6.5 /CUMM) 8.4 H Absolute Lymphocytes (1.2 - 3.4 /CUMM) 1.8 Absolute Monocytes (0.10 - 0.60 /CUMM) 1.1 H Absolute Eosinophils (0.0 - 0.7 /CUMM) 0.2 Absolute Basophils (0.0 - 0.2 /CUMM) 0.2 02/18 0820 Chemistry Sodium (137 - 145 mmol/L) 134 L Potassium (3.5 - 5.1 mmol/L) 4.4 Chloride (98 - 107 mmol/L) 98 Carbon Dioxide (22 - 30 mmol/L) 24 Anion Gap (5 - 16) 11 BUN (7 - 17 mg/dL) 23 H Creatinine (0.5 - 1.0 mg/dL) 0.8 Estimated GFR (>60 ml/min) > 60 BUN/Creatinine Ratio (7 - 25 %) 28.8 H Hematology CBC w Diff NO MAN DIFF REQ WBC (4.8 - 10.8 /CUMM) 14.0 H RBC (4.20 - 5.40 /CUMM) 3.58 L Hgb (12.0 - 16.0 G/DL) 9.8 L Hct (37 - 47 %) 29.7 L MCV (81.0 - 99.0 FL) 83.1 MCH (27.0 - 31.0 PG) 27.5 MCHC (33.0 - 37.0 G/DL) 33.1 RDW (11.5 - 14.5 %) 17.6 H Plt Count (130 - 400 /CUMM) 295 MPV (7.4 - 10.4 FL) 9.5 Gran % (42.2 - 75.2 %) 80.2 H Lymphocytes % (20.5 - 51.1 %) 9.2 L Monocytes % (1.7 - 9.3 %) 8.7 Eosinophils % (0 - 5 %) 1.2 Basophils % (0.0 - 2.0 %) 0.7 Absolute Granulocytes (1.4 - 6.5 /CUMM) 11.2 H Absolute Lymphocytes (1.2 - 3.4 /CUMM) 1.3 Absolute Monocytes (0.10 - 0.60 /CUMM) 1.2 H Absolute Eosinophils (0.0 - 0.7 /CUMM) 0.2 Absolute Basophils (0.0 - 0.2 /CUMM) 0.1 Imaging/Other Studies: CT abdomen/pelvis with contrast 02/02/2018: Interval development of approximately 5.4 cm cystic lesion within the medial left pelvis. Unfortunately, evaluation of the pelvis is significantly limited secondary to streak artifact from bilateral hip prostheses. Given history of bladder neoplasm, there is concern that this represents a cystic metastatic lesion or cystic/necrotic lymph node. Further evaluation may be attempted using pelvic ultrasound. Venous US 02/17/2018: There is positive deep venous thrombosis involving within the mid femoral vein partially occlusive. Clot also involves the saphenofemoral junction extending throughout the greater saphenous vein. 6 cm Pizarro's cyst. Assessment/Plan Assessment: Ms. Drake is an 87-year-old female with history of tobacco abuse, dementia, HLD, hypothyroidism, and muscle invasive bladder cancer status post cystoscopy and TUBT (09/26/2017) who presented to the hospital by her daughter for left leg swelling and pain since the afternoon of day of admission. She was found to have DVT of the left lower extremity. She has been started on heparin drip. Her renal function is normal. She may be covered to an oral anticoagulant. Apixaban is reasonable option. With regard to her bladder cancer, she has muscle invasive bladder cancer status post TUBT. She was recently noted to have a new 5.4 cm cystic lesion abutting the medial aspect of the left iliac bone. Similar coarse calcification of the pelvis which possibly represents a fibroid. Metastatic disease could not be ruled out due to limited evaluation secondary to streak artifact from bilateral hip prostheses. It is unclear if she has metastatic disease. She will need US of the pelvis and likely PET as an outpatient. Recommendations: DVT: -convert to oral anticoagulant (apixaban or warfarin) Bladder cancer: -US of the pelvis to evaluate mass -consider PET to stage patient -f/u as outpatient Dementia: -management as per primary -ensure POA is with her at outpatient follow up Problem List: 1. DVT (deep venous thrombosis) 2. Bladder cancer Other Findings/Comments: Please call [phone] with any questions or concerns. Consult Acknowledgment - Thank you for your consult request.
[2018-02-20 08:21] LABS: ABSOLUTE BASOPHIL COUNT 0.1 /CUMM (0.0-0.2); ABSOLUTE EOSINOPHIL COUNT 0.3 /CUMM (0.0-0.7); ABSOLUTE GRANULOCYTE CT 9.1 /CUMM (1.4-6.5); ABSOLUTE LYMPH COUNT 2.2 /CUMM (1.2-3.4); ABSOLUTE MONOCYTE COUNT 1.3 /CUMM (0.10-0.60); BASOPHIL % 0.8 % (0.0-2.0); EOSINOPHIL % 2.1 % (0-5); GRANULOCYTE % 70.4 % (42.2-75.2); HEMATOCRIT 30.5 % (37-47); MEAN CORPUSCULAR HGB 27.5 PG (27.0-31.0); MEAN CORPUSCULAR HGB CONC 32.9 G/DL (33.0-37.0); MEAN CORPUSCULAR VOLUME 83.6 FL (81.0-99.0); MEAN PLATELET VOLUME 9.4 FL (7.4-10.4); PLATELET COUNT 340 /CUMM (130-400); RBC DISTRIBUTION WIDTH 17.7 % (11.5-14.5); RED BLOOD CELL CT 3.65 /CUMM (4.20-5.40); WHITE BLOOD CELL COUNT 12.9 /CUMM (4.8-10.8)
--- NOTE | 2018-02-20 09:17 | Patient Discharge Instructions ---
Discharge Instructions General Discharge Information You were seen/treated for: DVT Watch for these problems: Swelling of left leg, pain in left leg, shortness of breath, chest pain, palpitation, hematuria, bleeding from any part of body and altered mental status. If you experience any of these syptoms come to ED or call to pcp. Special Instructions: Follow up with urology as outpatient Follow up with hematology /onco as outpatient for further plan for treatment of bladder cancer and discuss goals of care. Follow up with pcp in one week Follow up coumdain clinic. Dose coumadin according to INR EVERY DAY. Check INR every day and keep it between 2-3 Use lovenox until INR is between 2-3 Diet Recommended Diet: Regular Activity Full Activity/No Limits: Yes Acute Coronary Syndrome Inclusion Criteria At DC or during hospital stay patient has or had the following: ACS DIAGNOSIS No Discharge Core Measures Meds if any: Prescribed or Continued at Discharge Meds if any: NOT Prescribed or Continued at Discharge Congestive Heart Failure Inclusion Criteria At DC or during hospital stay patient has or had the following: CHF DIAGNOSIS No Discharge Core Measures Meds if any: Prescribed or Continued at Discharge Meds if any: NOT Prescribed or Continued at Discharge Cerebrovascular accident Inclusion Criteria At DC or during hospital stay patient has or had the following: CVA/TIA Diagnosis No Discharge Core Measures Meds if any: Prescribed or Continued at Discharge Meds if any: NOT Prescribed or Continued at Discharge Venous thromboembolism Inclusion Criteria VTE Diagnosis Yes VTE Type Deep Venous Thrombosis VTE Confirmed by (Test) DUPLEX VENOUS EXTREM UNI Discharge Core Measures - Per Current guidelines, there needs to be overlap - treatment for the first 5 days of Warfarin therapy. - If discharged on Warfarin prior to 5 days of - overlap therapy, the patient will need to be - assessed for post discharge needs including - *Post discharge parental anticoagulation - *Warfarin and/or parental anticoagulation education - *Follow up date to check INR post discharge At least 5 days overlap therapy as Inpatient Yes Meds if any: Prescribed or Continued at Discharge Note: Overlap Therapy is Warfarin and Anticoagulant Meds if any: NOT Prescribed or Continued at Discharge
[2018-02-20] MEDS ORDERED: LOVENOX100 MG/1 M SC ×2 (09:42→09:48)
[2018-02-20] MEDS ORDERED: COUMADIN5 M2 PO (09:47)
--- NOTE | 2018-02-20 09:58 | Discharge Summary ---
Visit Information Visit Dates Admission Date: 02/17/18 Discharge Date: 02/20/18 Hospital Course Course Attending Physician: Wendy Giles MD Primary Care Physician: Wolfgang VAUGHN,Daniel [facility] Course: 87 YO F ex-smoker with PMH of dementia, HLD, bladder cancer s/p cystoscopy with transurethral resection, recent UTI and hypothyroidism brought to ED by her daughter with chief complaint of left leg swelling and pain since this afternoon. ED course: Vitals: Temperature 98.4, pulse 73, respiratory rate 18, blood pressure 141/73, oxygen saturation 95% on room air Labs: WBC count 17.6, hemoglobin 10.8, hematocrit 33.4, platelet count 351, sodium 136, potassium 4.4, BUN 20, creatinine 0.8, anion gap 13, BUNs/creatinine ratio 25.0, glucose 102, AST 17, ALT 11, calcium 9.9 Left leg DVT: Patient was admitted with left leg swelling and pain. On Doppler study left leg patient was found to have proximal left leg DVT in the setting of metastatic bladder cancer. Patient was started on IV heparin. Hematology oncology consult was obtained and recommendations were followed. Considering patient's history of metastatic bladder cancer, she was monitor for any hematuria. Her CBC was monitor for H&H. Initially her H&H dropped but later on it remained stable. Later on patient was started on Coumadin 5 mg every day and bridged with Lovenox 100 mg every day. Her INR was subtherapeutic before discharge that's what patient was discharged on Coumadin with bridging Lovenox. Patient was instructed to check her INR and discontinue Lovenox when INR comes to 2 or between 2-3. Patient was also advised to follow Coumadin clinic as outpatient. Recent UTI: Patient was being treated for a UTI before admission. Her urine culture came back positive with staph coagulase-negative. Initially her nitrofurantoin was continued but later on it was discontinued as patient was afebrile and asymptomatic. H/O Metastatic bladder cancer: Patient has history of metastatic bladder cancer status post cystoscopy and transurethral resection. Urology and oncology consult was obtained. Oncology recommended to follow as outpatient and discuss with patient's family about their wishes about patient's bladder cancer treatment. Oncology will discuss with family about patient's goals of care as outpatient. Patient was instructed to follow oncology and urology as outpatient for further recommendations for treatment for bladder cancer. History of dementia: Continued donepezil and memantine. During the hospital stay Zyprexa was ordered when necessary for agitation. History of hypothyroidism: Continued levothyroxine. History of hyperlipidemia: Continued Lipitor. But after discharge with continued her simvastatin. DVT prophylaxis: Mechanical and on lovenox and coumadin CODE STATUS: DNR/DNI Allergies: Coded Allergies: erythromycin base (UNKNOWN 09/23/17) Pertinent Lab Results: Left leg Doppler study on 02/17/2017: IMPRESSION: Positive DVT. Limited imaging. WBC count 12.9, hemoglobin 10.0, hematocrit 30.5, platelet count 340, sodium 143 , potassium 3.7, BUN 15, creatinine 0.8 Disposition Summary Disposition Principal Diagnosis: Left leg DVT UTI Additional Diagnosis: History of metastatic bladder cancer History of dementia History of hypothyroidism History of hyperlipidemia Discharge Disposition: home health services Discharge Instructions General Discharge Information Code Status: Do Not Resucitate/Intubat Patient's Diet: Regular diet Patient's Activity: Self-limited Follow-Up Instructions/Appts: Follow up with urology as outpatient Follow up with hematology /onco as outpatient for further plan for treatment of bladder cancer and discuss goals of care. Follow up with pcp in one week Follow up coumdain clinic. Dose coumadin according to INR EVERY DAY. Check INR every day and keep it between 2-3 Use lovenox until INR is between 2-3 Medications at Discharge Discharge Medications: Stop taking the following medications: Nitrofurantoin Monohyd/M-Cryst (Macrobid 100 MG Capsule) 100 MG CAPSULE ORAL TWICE DAILY Qty = 14 Continue taking these medications: Memantine HCl/Donepezil HCl (Namzaric 7 MG-10 MG Capsule) 7 MG-10 MG CAP.SPR.24 7-10 Milligram ORAL DAILY Qty = 30 Comments: LAST GIVEN 02/20/18 @ 0929 Levothyroxine Sodium (Levothyroxine Sodium) 100 MCG TABLET 1 Tablet ORAL DAILY Qty = 30 Comments: LAST GIVEN 02/20/18 @ 0540 Simvastatin (Simvastatin*) 40 MG TABLET 1 Tablet ORAL DAILY Qty = 30 Comments: LAST GIVEN 02/19/18 @ 1733 Tramadol HCl (Tramadol HCl) 50 MG TABLET 1 Tablet ORAL EVERY SIX HOURS NEEDED as needed for PAIN SCALE 4-6 ( MODERATE) Qty = 30 Comments: NOT GIVEN Start taking the following new medications: Enoxaparin Sodium (Lovenox) 100 MG/ML SYRINGE 100 Milligram Inject into fatty tissue DAILY Qty = 2 No Refills Instructions: 100 MG every day for 2 days and check INR if its between 2-3 then stop it.. Comments: LAST GIVEN 02/20/18 @ 1112 Warfarin Sodium (Coumadin) 5 MG TABLET 1 Tablet ORAL DAILY Qty = 30 No Refills Instructions: Dose coumadin according to INR every day and keep INR between 2-3 Comments: LAST GIVEN 02/20/18/ @ 1220 Copies To: Sole VAUGHN,Kevin Denise; Nabila VAUGHN,BrandynTomy Goss MD,Daniel Perez Attending MD Review Statement Documenting Attending: Wendy Giles MD Other Findings: Discharged in stable condition
== END 2018-02-20 13:40 | disposition home health service (06) | DRG 300 ==
LOC: ERH 17:06 → ERHI 21:15 → 2NB 21:15 → ENRESERV 22:30 → ENTRNSPT 22:47 → EDTRNSPTSTS 22:50 → EDTRNSPT 22:50 → CMPTRNSPT 22:57 → 2NB 22:59 → ENPENDDIS 02-20 10:27 → ENTRNSPT 02-20 12:53 → EDTRNSPT 02-20 13:08 → EDTRNSPTSTS 02-20 13:08 → EDTRNSPT 02-20 13:17 → 2NB 02-20 13:40 → CMPTRNSPT 02-20 13:48
PROVIDERS: Internal Medicine; Internal Medicine Hematology & Oncology; Physician Assistant; Radiology Vascular & Interventional Radiology; Student in an Organized Health Care Education/Training Program
DX: I82.412 Acute embolism and thrombosis of left femoral vein (principal); C79.51 Secondary malignant neoplasm of bone; F05 Delirium due to known physiological condition; B95.7 Other staphylococcus as the cause of diseases classified elsewhere; C67.9 Malignant neoplasm of bladder, unspecified; E03.9 Hypothyroidism, unspecified; N39.0 Urinary tract infection, site not specified; E78.5 Hyperlipidemia, unspecified; F03.90 Unspecified dementia, unspecified severity, without behavioral disturbance, psychotic disturbance, mood disturbance, and anxiety; R59.0 Localized enlarged lymph nodes; Z88.1 Allergy status to other antibiotic agents; F17.210 Nicotine dependence, cigarettes, uncomplicated; R79.1 Abnormal coagulation profile; Z66 Do not resuscitate
CPT/HCPCS: 2NBP; 36415; 36592; 82436; 93005; 93010; 96374; 96375; J0696; J1644; J1650; J1885; J7060

== ENCOUNTER 2018-02-28 22:44 | Emergency (ER) | payer OTHER, MEDICARE ==
[~2018-02-28] VITALS: Ht 160 cm; Wt 58.5 kg
[~2018-02-28 22:44] MED LIST changes: +COUMADIN5 M2 PO; +LEVOTHYROXINE100 MC1 PO; +LOVENOX100 MG/1 M SC; +NAMZARIC 7 MG-1 EACH PO; +SIMVASTATIN40 M1 PO; +TRAMADOL HCL50 M1 PO
[2018-03-01 00:54] VITALS: BP 121/65
[2018-03-01 01:26] LABS: PT > 112.0 SEC (9.4-12.5)
--- NOTE | 2018-03-01 01:47 | ED DYSPNEA/ASTHMA COMPLAINT ---
History of Present Illness General Chief Complaint: General Adult Stated Complaint: PT WAS SIB FOR INR TEST Source: patient Exam Limitations: dementia Vital Signs & Intake/Output Vital Signs & Intake/Output Vital Signs Date Time Temp Pulse Resp B/P B/P Pulse O2 O2 Flow FiO2 Mean Ox Delivery Rate 03/01 0218 Room Air 03/01 0054 98.1 61 20 121/65 94 Room Air 02/28 2251 98.2 73 16 120/65 98 Room Air Room Air ED Intake and Output 03/01 0000 02/28 1200 Intake Total Output Total Balance Patient 129 lb Weight Weight Standing Scale Measurement Method Allergies Coded Allergies: erythromycin base (UNKNOWN 02/28/18) Reconcile Medications Enoxaparin Sodium (Lovenox) 100 MG/ML SYRINGE 100 MG SC DAILY DVT 100 MG every day for 2 days and check INR if its between 2-3 then stop it.. Levothyroxine Sodium 100 MCG TABLET 1 TAB PO DAILY THYROID HEALTH (Reported) Memantine HCl/Donepezil HCl (Namzaric 7 MG-10 MG Capsule) 7 MG-10 MG CAP.SPR.24 7-10 MG PO DAILY MEMORY (Reported) Simvastatin (Simvastatin*) 40 MG TABLET 1 TAB PO DAILY HIGH CHOLESTROL ( Reported) Tramadol HCl 50 MG TABLET 1 TAB PO Q6P PRN PAIN SCALE 4-6 (MODERATE) ( Reported) Warfarin Sodium (Coumadin) 5 MG TABLET 1 TAB PO DAILY Blood thinner Dose coumadin according to INR every day and keep INR between 2-3 Triage Note: PT TO TRIAGE FOR ELEVATED INR LEVEL WHICH WAS DRAWN AT 1530 TODAY. PT WAS PLACED ON WARFARIN RECENTLY FOR A DVT TO LEFT LEG. PT DENIES COMPLAINTS, INR 8.67 Triage Nurses Notes Reviewed? yes Onset: today Duration: unknown duration Severity: severe HPI: Patient sent to the emergency department due to a high INR level. The patient herself has no idea of why she is here in the emergency department but does know that she takes Coumadin. Past History Travel History Traveled to [place] past 21 day No Medical History Any Pertinent Medical History? 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 No Review of Systems Review of Systems Constitutional: Reports: no symptoms. EENTM: Reports: no symptoms. Respiratory: Reports: no symptoms. Cardiovascular: Reports: no symptoms. GI: Reports: no symptoms. Genitourinary: Reports: no symptoms. Musculoskeletal: Reports: no symptoms. Skin: Reports: no symptoms. Neurological/Psychological: Reports: no symptoms. Hematologic/Endocrine: Reports: no symptoms. Immunologic/Allergic: Reports: no symptoms. All Other Systems: Reviewed and Negative Physical Exam Physical Exam Respiratory: see below Comments: Gen.: Well-nourished, well-developed, no acute respiratory distress. Head: Normocephalic, atraumatic. Eyes: Normal inspection bilaterally Ears: Normal inspection bilaterally Nose: Normal inspection Throat/mouth : Moist mucosa Neck: Supple, full range of motion, no goiter Lungs: Quiet respirations Back: Normal range of motion Extremities: Normal range of motion grossly, no cyanosis clubbing or edema of the upper extremities Neurologic: Cranial nerves grossly intact, speech is clear Skin: warm and dry Psychiatric: Calm, cooperative, no apparent delusions or hallucinations Core Measures ACS in differential dx? No CVA/TIA Diagnosis No Sepsis Present: No Sepsis Focused Exam Completed? No Progress Differential Diagnosis: dietary issues, excess Coumadin intake Plan of Care: Orders Procedure Date/time Status PROTHROMBIN TIME 02/28 2257 Complete Current Medications Sig/Coby Start time Last Medication Dose Stop Time Status Admin Phytonadione 5 MG ONCE ONE 03/01 330 UNVr (Mephyton 5MG Tab) 03/01 331 Laboratory Tests 03/01/18 0051: PT > 112.0 *H, INR > 10.0 *H Initial ED EKG: none Departure Departure Disposition: HOME OR SELF CARE Condition: Stable Clinical Impression Primary Impression: Elevated INR Referrals: Wolfgang VAUGHN,Daniel Perez (PCP/Family) Additional Instructions: Do not take your Coumadin for the next 2 days. Have your INR rechecked in 48 hours by your primary care physician and have her Coumadin adjusted accordingly. Return immediately if any bleeding or other concerns/worsening. Thank you for choosing the [facility] Emergency Department for your care. It was a pleasure to serve you today. Lico Pandya M.D. [facility] Departure Forms: Customer Survey General Discharge Information Critical Care Note Critical Care Note Critical Care Time: non-applicable
== END 2018-03-01 03:38 ==
LOC: ERH 22:44
PROVIDERS: Physician Assistant Medical
DX: R79.1 Abnormal coagulation profile (principal)

== ENCOUNTER 2018-03-13 19:12 | Observation (INO) | payer OTHER, MEDICARE ==
[2018-03-13 20:16] LABS: ABSOLUTE BASOPHIL COUNT 0.3 /CUMM (0.0-0.2); ABSOLUTE EOSINOPHIL COUNT 0.1 /CUMM (0.0-0.7); ABSOLUTE GRANULOCYTE CT 13.3 /CUMM (1.4-6.5); ABSOLUTE LYMPH COUNT 1.4 /CUMM (1.2-3.4); ABSOLUTE MONOCYTE COUNT 1.4 /CUMM (0.10-0.60); BASOPHIL % 1.9 % (0.0-2.0); EOSINOPHIL % 0.5 % (0-5); GRANULOCYTE % 80.8 % (42.2-75.2); HEMATOCRIT 30.6 % (37-47); MEAN CORPUSCULAR HGB 26.8 PG (27.0-31.0); MEAN CORPUSCULAR HGB CONC 32.2 G/DL (33.0-37.0); MEAN CORPUSCULAR VOLUME 83.2 FL (81.0-99.0); MEAN PLATELET VOLUME 8.4 FL (7.4-10.4); PLATELET COUNT 397 /CUMM (130-400); RBC DISTRIBUTION WIDTH 17.1 % (11.5-14.5); RED BLOOD CELL CT 3.68 /CUMM (4.20-5.40); WHITE BLOOD CELL COUNT 16.5 /CUMM (4.8-10.8)
[2018-03-13 20:27] LABS: PTT 40 SEC (25-37)
--- NOTE | 2018-03-13 22:19 | ED UPPER/LOWER EXTREMITY COMPL ---
See Addendum History of Present Illness General Chief Complaint: Lower Extremity Injury Stated Complaint: SIB DR. RAMIREZ LEFT THIGH BLOOD CLOT, PAIN Source: family, old records Exam Limitations: dementia Vital Signs & Intake/Output Vital Signs & Intake/Output Vital Signs Date Time Temp Pulse Resp B/P B/P Pulse O2 O2 Flow FiO2 Mean Ox Delivery Rate 03/14 1340 97.5 73 18 132/78 97 Room Air Room Air 03/14 0830 98.0 75 18 128/71 96 Room Air Room Air 03/14 0435 98.1 71 18 130/60 97 Room Air 03/14 0431 Room Air 03/13 2218 98.4 88 18 132/74 Room Air ED Intake and Output 03/14 0000 03/13 1200 Intake Total 120 Output Total Balance 120 Intake, Oral 120 Allergies Coded Allergies: erythromycin base (UNKNOWN 02/28/18) Reconcile Medications Enoxaparin Sodium (Lovenox) 100 MG/ML SYRINGE 100 MG SC DAILY DVT 100 MG every day for 2 days and check INR if its between 2-3 then stop it.. Levothyroxine Sodium 100 MCG TABLET 1 TAB PO DAILY THYROID HEALTH (Reported) Memantine HCl/Donepezil HCl (Namzaric 7 MG-10 MG Capsule) 7 MG-10 MG CAP.SPR.24 7-10 MG PO DAILY MEMORY (Reported) Simvastatin (Simvastatin*) 40 MG TABLET 1 TAB PO DAILY HIGH CHOLESTROL ( Reported) Tramadol HCl 50 MG TABLET 1 TAB PO Q6P PRN PAIN SCALE 4-6 (MODERATE) ( Reported) Warfarin Sodium (Coumadin) 5 MG TABLET 1 TAB PO DAILY Blood thinner Dose coumadin according to INR every day and keep INR between 2-3 Triage Note: PT REFERRED TO ED BY MD RAMIREZ FOR WORSENING PAIN AND SWELLING TO LEFT LOWER LEG. PT HAS KNOWN BLOOD CLOT TO SAME LEG Triage Nurses Notes Reviewed? yes HPI: Patient brought in by her daughter for evaluation for severe pain in her left leg. Patient has a known DVT. Daughter states that she has home physical therapy but she is very unsafe at home. Patient is very unsteady on her feet and has been moaning constantly secondary to pain in her leg. The daughter is concerned for her safety at home she brought her in for reevaluation. Patient has severe dementia and is unable to provide any history. (Shawn VAUGHN,Joe Burnham) Past History Travel History Traveled to [place] past 21 day No Medical History Any Pertinent Medical History? 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 No (Shawn VAUGHN,Joe Burnham) Review of Systems Review of Systems Constitutional: Reports: see HPI. (Shawn VAUGHN,Joe Burnham) Physical Exam Physical Exam General Appearance: well developed/nourished, awake Head: atraumatic Eyes: Bilateral: PERRL, EOMI. Neck: normal inspection, supple, full range of motion Cardiovascular/Respiratory: normal breath sounds, normal peripheral pulses, regular rate/rhythm Leg Left: pain, EDEMA Neurologic/Tendon: normal sensation, normal motor functions, normal tendon functions, PULSES INTACT (Shawn VAUGHN,Joe Burnham) Progress Differential Diagnosis: DVT Plan of Care: Orders Procedure Date/time Status Heart Healthy Diet 03/14 B Active Discharge Patient 03/14 1428 Active MOBILITY D/C STATUS 03/14 UNK Complete MOBILITY GOAL STATUS 03/14 UNK Complete MOBILITY CURRENT STATUS 03/14 UNK Complete Gait Training, 15 Min 03/14 UNK Complete PT EVAL LOW COMPLEX 20 MIN 03/14 UNK Complete ED Holding Orders 03/13 2331 Active Intake & Output 03/13 2315 Active PT Evaluate & Treat 03/[address] in observation 03/13 2213 Active ED Holding Orders 03/13 2213 Active Patient Data 03/13 2213 Active Vital Signs 03/13 2213 Active CASE MANAGEMENT CONSULT 03/13 2213 Active Code Status 03/13 2213 Active Hand-Off Endorsed To: Lico Sloan DO Endorsed Time: 0700 Pending: consult Comments: Patient has a history of elevated white blood cell count. (Shawn VAUGHN,Joe Burnham) Comments: 03/14/2018 7:26:02 AM patient signed out to me (not DR. Sloan) by Dr. 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 (Ya VAUGHN,Lico Farfan) Departure Departure Condition: Stable Referrals: Wolfgang VAUGHN,Daniel Perez (PCP/Family) Departure Forms: Customer Survey General Discharge Information (Shawn VAUGHN,Joe Burnham) Departure Disposition: HOME OR SELF CARE Clinical Impression Primary Impression: DVT (deep venous thrombosis) Qualifiers: DVT location: lower extremity Affected thrombotic vein of extremity : unspecified vein of extremity Chronicity: acute Laterality: left Qualified Code: I82.402 - Acute embolism and thrombosis of unspecified deep veins of left lower extremity Secondary Impressions: Intractable pain Leukocytosis Qualifiers: Leukocytosis type: unspecified Qualified Code: D72.829 - Elevated white blood cell count, unspecified Additional Instructions: Follow-up with Dr. Goodson this week. Contact home health aide agency and arrange for home services as soon as possible. Return if any concerns or sudden worsening. Please note that there might be incidental findings in your evaluation that are unrelated to the current emergency department visit. Please notify your primary care doctor about this emergency department visit in order to obtain and review all of the testing performed so that these incidental findings can be monitored as needed. If you had an x-ray performed, please understand that some fractures may not be seen on the initial set of x-rays. If your symptoms persist you might need a repeat set of x-rays to check for such a fracture. If you had a laceration evaluated, please understand that foreign bodies such as glass or wood may not be visible to the naked eye or on plain x-rays. If the wound becomes red, swollen, increasingly more painful or if there is any drainage from the wound, please have it reevaluated by a physician for the possibility of a retained foreign body. If you're unable to follow up as outlined in the discharge instructions please return to the emergency department. Thank you for choosing the [facility] Emergency Department for your care. It was a pleasure to serve you today. Lico Pandya M.D. [facility] (Ya VAUGHN,Lico Farfan) Departure Comments 03/14/18 The patient was discharged by Dr. Pandya. She was not signed out to me. (Lico Sloan DO) ED Attending Observation Initial Observation Note: I have seen and personally examined GOVIND MONTENEGRO on 03/13/18 at 2214. I agree with the current emergency department documentation. The disposition (admission or discharge) is uncertain at this time, she needs a period of observation for the following reason(s): [Patient is having severe pain secondary to her DVT. Patient required assistance to just stand from the wheelchair and pivot to the bed. Patient will need physical therapy as well as case management involvement.] The ED Nurse caring for this patient has been personally informed as to what the patient is being observed for. Observation Re-Evaluation: I have reevaluated GOVIND MONTENEGRO on 03/14/18 at 0149. The physical findings that support the continued need to observe this patient include [patient resting comfortably. Pain seems to be improved after the Tylenol with codeine as the patient is not moaning as much as however she has dementia and cannot answer about pain. Her lungs are clear to auscultation. Patient is awaiting physical therapy evaluation in the morning.]. (Shawn VAUGHN,Joe Burnham) Initial Observation Note: I have seen and personally examined GOVIND MONTENEGRO on 03/13/18 at 2214. I agree with the current emergency department documentation. The disposition (admission or discharge) is uncertain at this time, she needs a period of observation for the following reason(s): [Patient is having severe pain secondary to her DVT. Patient required assistance to just stand from the wheelchair and pivot to the bed. Patient will need physical therapy as well as case management involvement.] The ED Nurse caring for this patient has been personally informed as to what the patient is being observed for. Observation Re-Evaluation: I have reevaluated GOVIND MONTENEGRO on 03/14/18 at 0149. The physical findings that support the continued need to observe this patient include [patient resting comfortably. Pain seems to be improved after the Tylenol with codeine as the patient is not moaning as much as however she has dementia and cannot answer about pain. Her lungs are clear to auscultation. Patient is awaiting physical therapy evaluation in the morning.]. (Joe Escobar MD)
[2018-03-14 13:40] VITALS: BP 132/78
== END 2018-03-14 15:26 ==
LOC: ERH 19:12 → ERHI 22:13
PROVIDERS: Physician Assistant Medical
DX: I82.4Y2 Acute embolism and thrombosis of unspecified deep veins of left proximal lower extremity (principal); F03.90 Unspecified dementia, unspecified severity, without behavioral disturbance, psychotic disturbance, mood disturbance, and anxiety; D72.829 Elevated white blood cell count, unspecified; Z79.01 Long term (current) use of anticoagulants; E78.5 Hyperlipidemia, unspecified; Z85.51 Personal history of malignant neoplasm of bladder; E03.9 Hypothyroidism, unspecified; F17.200 Nicotine dependence, unspecified, uncomplicated; N39.0 Urinary tract infection, site not specified
CPT/HCPCS: 6090; 97116-GP; 97161-GP; G0378; G8978-GP; G8979-GP; G8980-GP